=== PATIENT | male | born 1975 | race Two or more races ===

== ENCOUNTER 2016-11-26 07:06 | Emergency (ER) | payer OTHER ==
[~2016-11-26] VITALS: Ht 167.6 cm; Wt 74.8 kg
--- NOTE | 2016-11-26 07:16 | NUR ---
PT BIBSELF, C/O LEFT HAND PAIN WITH MEDIAL SIDE OF HAND SWOLLEN X 2 WEEKS. VSS. AWAITING MD ORDER
[2016-11-26] MEDS ORDERED: VANCOMYCIN 1 GM in IV D5W 250 ML IV ONE (08:00)
[2016-11-26] MEDS ORDERED: IV SET PRIMARY PUMP SET 1 EA INFUS.SET MC ONE (08:08)
[2016-11-26] MEDS ORDERED: CEFTRIAXONE 1 G VIAL ONE (08:29)
[2016-11-26] MEDS ORDERED: CEFTRIAXONE 1 G VIAL IM ONE (08:30)
[2016-11-26] MEDS ORDERED: LIDOCAINE /MPF 1% VIAL 5 ML VIAL ONE (08:30)
[2016-11-26 08:39] VITALS: BP 125/85
--- NOTE | 2016-11-26 08:39 | NUR ---
Patient discharged to home in stable condition. Written and verbal after care instructions given. Patient verbalizes understanding of instruction.
== END 2016-11-26 08:40 | disposition home or self-care (01) ==
LOC: ER 07:12
DX: L03.114 Cellulitis of left upper limb (principal)
CPT/HCPCS: 73130-TC; A4606; J0696; J3370; J3490; J7060; Z7610

== ENCOUNTER 2023-10-27 22:49 | Emergency (ER) | payer OTHER ==
[~2023-10-27] VITALS: Ht 162.6 cm; Wt 77.1 kg
[2023-10-28 00:15] VITALS: BP 177/89; TEMP 98.6; O2SAT 100
== END 2023-10-28 00:16 | disposition home or self-care (01) ==
LOC: ER 23:02
DX: M54.9 Dorsalgia, unspecified (principal); Z60.2 Problems related to living alone
CPT/HCPCS: 72020-TC

== ENCOUNTER 2025-03-27 01:13 | Emergency (ER) | payer OTHER ==
[~2025-03-27] VITALS: Ht 162.6 cm; Wt 77.1 kg
[2025-03-27 02:20] LABS: PLATELET COUNT (AUTO) 208 K/uL (150-450); RED BLOOD CELL COUNT(AUTO) 4.31 MIL/uL (4.5-6.0); RED CELL DISTRIBUTION WIDTH 12.2 % (11.5-15.0); WHITE BLOOD COUNT (AUTO) 5.6 K/uL (4.3-11.0)
[2025-03-27 02:26] LABS: CALCIUM, SERUM 8.8 mg/dL (8.5-10.1); CREATININE 1.0 mg/dL (0.6-1.3); SODIUM SERUM 141 mmol/L (136-145); UREA NITROGEN, BLOOD 21 mg/dL (7-18)
[2025-03-27 05:17] VITALS: BP 140/90; TEMP 98; O2SAT 99
== END 2025-03-27 05:18 ==
LOC: ER 01:14
DX: R07.9 Chest pain, unspecified (principal); F10.129 Alcohol abuse with intoxication, unspecified; F11.10 Opioid abuse, uncomplicated; F17.200 Nicotine dependence, unspecified, uncomplicated; F19.10 Other psychoactive substance abuse, uncomplicated; Z60.2 Problems related to living alone
CPT/HCPCS: 36415; 71045-TC; 80048-TC; 84484-TC; 85025-TC